=== PATIENT | male | born 1960 | race African-American/Black ===

== ENCOUNTER 2018-09-30 06:27 | Emergency (ER) | payer SELFPAY ==
[~2018-09-30] VITALS: Ht 170.2 cm; Wt 64.0 kg
[2018-09-30] MEDS ORDERED: KETOROLAC 60MG/2ML VIAL IM ONE (08:00)
[2018-09-30 08:16] VITALS: BP 140/87
== END 2018-09-30 09:02 | disposition home or self-care (01) ==
LOC: ER 06:27
DX: M25.512 Pain in left shoulder (principal); F17.200 Nicotine dependence, unspecified, uncomplicated; F12.10 Cannabis abuse, uncomplicated; Z98.890 Other specified postprocedural states
CPT/HCPCS: 73030; 96372; 99283; J1885

== ENCOUNTER 2019-10-12 08:43 | Emergency (ER) | payer OTHER ==
[~2019-10-12] VITALS: Ht 172.7 cm; Wt 71.0 kg
[2019-10-12] MEDS ORDERED: HYDROCODONE/ACETAMINOPHEN 5/325MG TABLET PO ONE (09:30)
[2019-10-12 10:49] VITALS: BP 119/74
== END 2019-10-12 10:50 | disposition home or self-care (01) ==
LOC: ER 09:04
DX: M54.2 Cervicalgia (principal); F12.10 Cannabis abuse, uncomplicated; Z90.49 Acquired absence of other specified parts of digestive tract; Z85.46 Personal history of malignant neoplasm of prostate
CPT/HCPCS: 99283

== ENCOUNTER 2019-11-16 18:25 | Emergency (ER) | payer OTHER ==
[~2019-11-16] VITALS: Ht 172.7 cm; Wt 77.0 kg
[2019-11-16] MEDS ORDERED: ONDANSETRON HCL 4MG/2ML INJ IV STA (18:54)
[2019-11-16] MEDS ORDERED: SODIUM CHLORIDE 0.9% 1,000 ML IV ONE (18:54)
[2019-11-16 20:40] LABS: EOSINOPHILS % 0.7 % (0.0-5.0); HEMATOCRIT. 23.8 % (42.0-52.0); HEMOGLOBIN. 8.1 g/dL (14.0-18.0); MEAN CORPUSCULAR HEMOGLOBIN 28.2 pg (28.0-32.0); MEAN CORPUSCULAR VOLUME 83.4 fL (80.0-94.0); MEAN PLATELET VOLUME 6.5 fl (7.4-10.4); MONOCYTES % 5.2 % (2.0-8.0); NEUTROPHILS % 70.1 % (40.0-76.0); PLATELET 292 x1000/uL (130-400); RED BLOOD CELL COUNT 2.86 mill/uL (4.7-6.1); RED CELL DISTRIBUTION WIDTH 17.7 % (11.6-14.6)
[2019-11-16 20:43] LABS: CHLORIDE 110 mEq/L (98-107)
[2019-11-16 21:40] VITALS: BP 98/58
[2019-11-16 22:14] LABS: CLARITY URINE CLEAR (CLEAR); COLOR URINE YELLOW (YELLOW); KETONES URINE NEGATIVE (NEGATIVE); LEUKOCYTE ESTERASE URINE NEGATIVE (NEGATIVE); NITRITE URINE NEGATIVE (NEGATIVE); OCCULT BLOOD URINE NEGATIVE (NEGATIVE); PROTEIN URINE NEGATIVE (NEGATIVE); UROBILINOGEN URINE 0.2 E.U./dL (0.2-1.0)
== END 2019-11-16 22:00 | disposition home or self-care (01) ==
LOC: ER 18:25
DX: R55 Syncope and collapse (principal); R11.2 Nausea with vomiting, unspecified; R42 Dizziness and giddiness; F12.10 Cannabis abuse, uncomplicated; Z90.49 Acquired absence of other specified parts of digestive tract; Z85.46 Personal history of malignant neoplasm of prostate
CPT/HCPCS: 36415; 80053; 81003; 85025; 93005; 96361; 96374; 99284; J2405; J7030

== ENCOUNTER 2020-01-05 11:06 | Emergency (ER) | payer OTHER ==
[~2020-01-05] VITALS: Ht 177.8 cm; Wt 65.0 kg
[2020-01-05 14:03] VITALS: BP 126/72
== END 2020-01-05 16:38 | disposition left against medical advice (07) ==
LOC: ER 11:06
DX: Z53.21 Procedure and treatment not carried out due to patient leaving prior to being seen by health care provider (principal)

== ENCOUNTER 2020-03-19 09:05 | Emergency (ER) | payer OTHER ==
[~2020-03-19] VITALS: Ht 170.2 cm; Wt 58.0 kg
[2020-03-19 09:53] LABS: HEMATOCRIT. 22.5 % (42.0-52.0); HEMOGLOBIN. 7.6 g/dL (14.0-18.0); MEAN CORPUSCULAR HEMOGLOBIN 28.9 pg (28.0-32.0); MEAN CORPUSCULAR VOLUME 85.3 fL (80.0-94.0); MEAN PLATELET VOLUME 6.5 fl (7.4-10.4); PLATELET 113 x1000/uL (130-400); RED BLOOD CELL COUNT 2.64 mill/uL (4.7-6.1); RED CELL DISTRIBUTION WIDTH 22.7 % (11.6-14.6)
[2020-03-19 10:00] LABS: CHLORIDE 110 mEq/L (98-107)
[2020-03-19 10:01] LABS: CLARITY URINE CLEAR (CLEAR); COLOR URINE YELLOW (YELLOW); KETONES URINE NEGATIVE (NEGATIVE); LEUKOCYTE ESTERASE URINE NEGATIVE (NEGATIVE); NITRITE URINE NEGATIVE (NEGATIVE); OCCULT BLOOD URINE NEGATIVE (NEGATIVE); PH URINE 5.5 (4.5-8.0); PROTEIN URINE 1+ (NEGATIVE); SPECIFIC GRAVITY URINE 1.017 (1.005-1.030); UROBILINOGEN URINE 0.2 E.U./dL (0.2-1.0)
[2020-03-19 10:01] LABS: INR 0.9; PROTHROMBIN TIME 10.3 sec (9.6-11.0)
[2020-03-19 10:26] LABS: NUCLEATED RED BLOOD CELLS 27 /100 WBC; PLATELET ESTIMATE DECREASED
[2020-03-19 11:08] VITALS: BP 128/68
== END 2020-03-19 11:11 | disposition home or self-care (01) ==
LOC: ER 09:05
DX: D64.9 Anemia, unspecified (principal); F12.10 Cannabis abuse, uncomplicated; Z85.46 Personal history of malignant neoplasm of prostate; Z98.890 Other specified postprocedural states; Z90.49 Acquired absence of other specified parts of digestive tract
CPT/HCPCS: 36415; 71045; 80053; 81003; 85025; 86850; 86900; 99284

== ENCOUNTER 2020-07-02 07:49 | Emergency (ER) | payer MEDICAID, OTHER ==
[~2020-07-02] VITALS: Ht 170.2 cm; Wt 54.4 kg
[2020-07-02 09:49] LABS: HEMATOCRIT. 23.3 % (42.0-52.0); HEMOGLOBIN. 7.4 g/dL (14.0-18.0); MEAN CORPUSCULAR HEMOGLOBIN 28.5 pg (28.0-32.0); MEAN CORPUSCULAR VOLUME 89.7 fL (80.0-94.0); MEAN PLATELET VOLUME 6.6 fl (7.4-10.4); PLATELET 108 x1000/uL (130-400); RED BLOOD CELL COUNT 2.59 mill/uL (4.7-6.1); RED CELL DISTRIBUTION WIDTH 22.4 % (11.6-14.6)
[2020-07-02 09:51] LABS: CHLORIDE 109 mEq/L (98-107)
[2020-07-02 09:54] LABS: PROTHROMBIN TIME 10.3 sec (9.6-11.0)
[2020-07-02 10:18] LABS: NUCLEATED RED BLOOD CELLS 23 /100 WBC
[2020-07-02 10:19] LABS: PLATELET ESTIMATE DECREASED
[2020-07-02 11:12] VITALS: BP 122/71
== END 2020-07-02 11:20 | disposition home or self-care (01) ==
LOC: ER 07:49
DX: D64.9 Anemia, unspecified (principal); C80.1 Malignant (primary) neoplasm, unspecified; I49.9 Cardiac arrhythmia, unspecified
CPT/HCPCS: 36415; 80053; 85025; 86850; 86900; 86920; 93005; 99284

== ENCOUNTER 2020-09-04 08:36 | Inpatient (IN) | payer MEDICAID ==
[~2020-09-04] VITALS: Ht 170.2 cm; Wt 50.8 kg
[2020-09-04 10:18] LABS: CHLORIDE 105 mEq/L (98-107)
[2020-09-04 10:21] LABS: PROTHROMBIN TIME 10.8 sec (9.6-11.0)
[2020-09-04 10:25] LABS: MEAN CORPUSCULAR HEMOGLOBIN 29.3 pg (28.0-32.0); MEAN CORPUSCULAR VOLUME 93.8 fL (80.0-94.0); MEAN PLATELET VOLUME 7.7 fl (7.4-10.4); PLATELET 118 x1000/uL (130-400); RED BLOOD CELL COUNT 2.17 mill/uL (4.7-6.1)
[2020-09-04 10:29] LABS: HEMATOCRIT. 20.3 % (42.0-52.0); HEMOGLOBIN. 6.3 g/dL (14.0-18.0)
[2020-09-04 11:00] LABS: CLARITY URINE CLEAR (CLEAR); COLOR URINE YELLOW (YELLOW); KETONES URINE NEGATIVE (NEGATIVE); LEUKOCYTE ESTERASE URINE NEGATIVE (NEGATIVE); NITRITE URINE NEGATIVE (NEGATIVE); OCCULT BLOOD URINE NEGATIVE (NEGATIVE); PROTEIN URINE 1+ (NEGATIVE); SPECIFIC GRAVITY URINE 1.019 (1.005-1.030); UROBILINOGEN URINE 0.2 E.U./dL (0.2-1.0)
[2020-09-04 11:03] LABS: NUCLEATED RED BLOOD CELLS 29 /100 WBC; PLATELET ESTIMATE SLIGHTLY DECREASED
[2020-09-04] MEDS ORDERED: SODIUM CHLORIDE 0.9% 1000ML BAG (SEPSIS BOLUS) IV ONE (11:30)
[2020-09-04] MEDS ORDERED: KETOROLAC 30MG/ML VIAL IV ONE (11:30)
[2020-09-04 13:41] VITALS: BP 135/79
[2020-09-04] MEDS ORDERED: TRAM50TA3 MT (14:44)
[2020-09-04] MEDS ORDERED: DOCU-150 PO (14:45)
[2020-09-04] MEDS ORDERED: CALC-61 PO (14:52)
[2020-09-04] MEDS ORDERED: ENZA40CA PO (14:52)
[2020-09-04] MEDS ORDERED: FERR324T4 MT (14:52)
[2020-09-04] MEDS ORDERED: PRED5TAB48 PO (14:52)
[2020-09-04] MEDS ORDERED: TAMS-11 PO (14:52)
[2020-09-04] MEDS ORDERED: LEVO50TA8 PO (14:52)
[2020-09-04 15:22] VITALS: BP 135/79
[2020-09-04 16:00] VITALS: BP 117/61
[2020-09-04] MEDS ORDERED: HYDROCODONE/ACETAMINOPHEN 5/325MG TABLET PO PRN (17:15)
[2020-09-04] MEDS ORDERED: ACETAMINOPHEN 325MG TABLET PO PRN ×2 (17:15)
[2020-09-04] MEDS ORDERED: ONDANSETRON HCL 4MG/2ML INJ IV PRN (17:15)
[2020-09-04] MEDS ORDERED: CLONIDINE 0.1MG TABLET PO PRN (17:15)
[2020-09-04] MEDS ORDERED: IPRATROPIUM/ALBUTEROL 0.5-3(2.5)MG/3ML NEB HHN PRN (17:15)
[2020-09-04] MEDS ORDERED: LORAZEPAM 0.5MG TABLET PO PRN (17:15)
[2020-09-04] MEDS ORDERED: DOCUSATE SODIUM 100MG CAPSULE PO PRN (17:15)
[2020-09-04] MEDS: NICOTINE 14MG PATCH TD SCH (17:51)
[2020-09-04] MEDS ORDERED: POTASSIUM CHLORIDE 20MEQ TABLET SR PO NR (18:00)
[2020-09-04 19:15] LABS: TOTAL IRON BINDING CAPACITY 233 ug/dL (250-450)
[2020-09-04 20:00] VITALS: BP 113/77
[2020-09-04 20:59] LABS: MEAN CORPUSCULAR HEMOGLOBIN 29.3 pg (28.0-32.0); MEAN CORPUSCULAR VOLUME 91.2 fL (80.0-94.0); PLATELET 87 x1000/uL (130-400); RED BLOOD CELL COUNT 2.09 mill/uL (4.7-6.1); RED CELL DISTRIBUTION WIDTH 20.1 % (11.6-14.6)
[2020-09-04 21:31] LABS: HEMOGLOBIN 6.1 g/dL (14.0-18.0)
[2020-09-04 21:32] LABS: HEMATOCRIT 19.1 % (42.0-52.0)
[2020-09-04 23:25] VITALS: BP 109/66
[2020-09-04 23:40] VITALS: BP 110/64
[2020-09-05] VITALS (9 sets, daily range): BP systolic 106–122; BP diastolic 64–71
[2020-09-05 05:15] LABS: *AMPHETAMINES SCREEN URINE NEGATIVE (NEGATIVE); *BARBITURATES SCREEN URINE NEGATIVE (NEGATIVE); *COCAINE SCREEN URINE NEGATIVE (NEGATIVE); METHADONE URINE SCREEN NEGATIVE (NEGATIVE); OPIATES URINE SCREEN PRESUMTIVE POSITIVE (NEGATIVE)
[2020-09-05 05:16] LABS: *BENZODIAZEPINES SCREEN URINE NEGATIVE (NEGATIVE); CANNABINOID URINE SCREEN PRESUMTIVE POSITIVE (NEGATIVE); PHENCYCLIDINE URINE SCREEN NEGATIVE (NEGATIVE)
[2020-09-05 06:27] LABS: HEMATOCRIT. 24.1 % (42.0-52.0); HEMOGLOBIN. 7.9 g/dL (14.0-18.0); MEAN CORPUSCULAR HEMOGLOBIN 29.8 pg (28.0-32.0); MEAN CORPUSCULAR VOLUME 91.4 fL (80.0-94.0); MEAN PLATELET VOLUME 7.2 fl (7.4-10.4); PLATELET 84 x1000/uL (130-400); RED BLOOD CELL COUNT 2.64 mill/uL (4.7-6.1)
[2020-09-05 06:31] LABS: CHLORIDE 113 mEq/L (98-107)
[2020-09-05] MEDS: NICOTINE 14MG PATCH TD SCH (09:07)
[2020-09-05 14:09] LABS: NUCLEATED RED BLOOD CELLS 31 /100 WBC
[2020-09-05 14:10] LABS: PLATELET ESTIMATE DECREASED
== END 2020-09-05 17:10 | disposition home or self-care (01) | DRG 663 ==
LOC: ER 08:36 → 8WST 11:22 → ENRESERV 12:02
PROVIDERS: ADMIT Internal Medicine; ATTEND Internal Medicine
PROC: 30233N1 Transfusion of Nonautologous Red Blood Cells into Peripheral Vein, Percutaneous Approach (ICD-10-PCS; principal; 2020-09-04)
DX: D64.81 Anemia due to antineoplastic chemotherapy (principal); C61 Malignant neoplasm of prostate; D69.6 Thrombocytopenia, unspecified; D72.825 Bandemia; M54.9 Dorsalgia, unspecified; R64 Cachexia; C79.51 Secondary malignant neoplasm of bone; K06.1 Gingival enlargement; R74.01 Elevation of levels of liver transaminase levels; T45.1X5A Adverse effect of antineoplastic and immunosuppressive drugs, initial encounter; Z90.49 Acquired absence of other specified parts of digestive tract; Y92.89 Other specified places as the place of occurrence of the external cause; Z68.1 Body mass index [BMI] 19.9 or less, adult; J44.9 Chronic obstructive pulmonary disease, unspecified; F10.21 Alcohol dependence, in remission; E44.1 Mild protein-calorie malnutrition
CPT/HCPCS: 36415; 71045; 72100; 76700; 80048; 80053; 80076; 80305; 81003; 82270; 82607; 82728; 82746; 83540; 83550; 83605; 84145; 85025; 85027; 85044; 86850; 86900; 86920; 93005; 99291; J1885; J7030; J7040; P9016; P9021

== ENCOUNTER 2020-10-16 09:20 | Emergency (ER) | payer MEDICAID ==
[~2020-10-16] VITALS: Ht 170.2 cm; Wt 50.0 kg
[~2020-10-16 09:20] MED LIST: CALC-61 PO; DOCU-150 PO; ENZA40CA PO; FERR324T4 MT; LEVO50TA8 PO; PRED5TAB48 PO; TAMS-11 PO; TRAM50TA3 MT
[2020-10-16] MEDS ORDERED: HYDROCODONE/ACETAMINOPHEN 5/325MG TABLET PO ONE (11:00)
[2020-10-16 11:13] LABS: CLARITY URINE CLEAR (CLEAR); COLOR URINE YELLOW (YELLOW); KETONES URINE NEGATIVE (NEGATIVE); LEUKOCYTE ESTERASE URINE NEGATIVE (NEGATIVE); NITRITE URINE NEGATIVE (NEGATIVE); OCCULT BLOOD URINE NEGATIVE (NEGATIVE); PROTEIN URINE 1+ (NEGATIVE); SPECIFIC GRAVITY URINE 1.021 (1.005-1.030); UROBILINOGEN URINE 0.2 E.U./dL (0.2-1.0)
[2020-10-16 11:24] LABS: CHLORIDE 113 mEq/L (98-107)
[2020-10-16 11:26] LABS: INR 1.2; PROTHROMBIN TIME 12.1 sec (9.6-11.0)
[2020-10-16 11:30] LABS: MEAN CORPUSCULAR HEMOGLOBIN 29.8 pg (28.0-32.0); MEAN CORPUSCULAR VOLUME 94.8 fL (80.0-94.0); MEAN PLATELET VOLUME 7.5 fl (7.4-10.4); PLATELET 168 x1000/uL (130-400); RED BLOOD CELL COUNT 2.04 mill/uL (4.7-6.1); RED CELL DISTRIBUTION WIDTH 20.4 % (11.6-14.6); TOTAL IRON BINDING CAPACITY 254 ug/dL (250-450)
[2020-10-16 11:41] LABS: HEMATOCRIT. 19.4 % (42.0-52.0); HEMOGLOBIN. 6.1 g/dL (14.0-18.0)
[2020-10-16] MEDS ORDERED: PANTOPRAZOLE SODIUM 40 MG/VIAL IV ONE (12:15)
[2020-10-16 12:17] LABS: NUCLEATED RED BLOOD CELLS 3 /100 WBC
[2020-10-16 12:18] LABS: PLATELET ESTIMATE NORMAL
[2020-10-16] MEDS ORDERED: HYDROCODONE/ACETAMINOPHEN 5/325MG TABLET PO PRN (13:00)
[2020-10-16] MEDS ORDERED: TAMSULOSIN HCL 0.4MG SR CAPSULE PO SCH (13:00)
[2020-10-16] MEDS ORDERED: ACETAMINOPHEN 325MG TABLET PO PRN (13:00)
[2020-10-16] MEDS ORDERED: ONDANSETRON HCL 4MG/2ML INJ IV PRN (13:00)
[2020-10-17 03:27] LABS: HEMATOCRIT. 23.8 % (42.0-52.0); HEMOGLOBIN. 7.5 g/dL (14.0-18.0); MEAN CORPUSCULAR HEMOGLOBIN 29.3 pg (28.0-32.0); MEAN CORPUSCULAR VOLUME 92.3 fL (80.0-94.0); PLATELET 147 x1000/uL (130-400); RED BLOOD CELL COUNT 2.58 mill/uL (4.7-6.1); RED CELL DISTRIBUTION WIDTH 19.7 % (11.6-14.6)
[2020-10-17 03:31] LABS: CHLORIDE 114 mEq/L (98-107)
[2020-10-17 05:53] LABS: ATYPICAL LYMPHOCYTES 1; NUCLEATED RED BLOOD CELLS 9 /100 WBC; PLATELET ESTIMATE NORMAL
[2020-10-17 10:43] VITALS: BP 116/62
== END 2020-10-17 13:34 | disposition home or self-care (01) ==
LOC: ER 11:37 → EDBEDREQ 12:10 → ENRESERV 10-17 07:24 → ER 10-17 13:34 → CANBEDREQ 10-17 15:43
DX: D64.89 Other specified anemias (principal); E87.8 Other disorders of electrolyte and fluid balance, not elsewhere classified; R94.5 Abnormal results of liver function studies; Z79.899 Other long term (current) drug therapy; Z98.890 Other specified postprocedural states; Z90.49 Acquired absence of other specified parts of digestive tract
CPT/HCPCS: 36415; 71045; 80048; 80053; 81003; 82270; 83540; 83550; 83690; 84145; 84484; 85025; 85044; 85610; 86850; 86900; 86901; 86920; 93005; 96374; 99285; C9113; Z7610; P9021